=== PATIENT | female | born 1935 | race Caucasian/White ===

== ENCOUNTER 2016-09-03 11:05 | Emergency (ER) | payer OTHER, BC ==
[~2016-09-03] VITALS: Ht 162.6 cm; Wt 78.5 kg
[~2016-09-03 11:05] MED LIST: ARTANE2 MG PO; Amoxil PO; Aspirin E.C. PO; BACTRIM,SEPT1 TABLET PO; Bactrim,Septra DS 80 PO; CARBIDOPA-LEVO1 EA10 PO; CEFDINIR300 MG PO; CIPRO500 MG PO; Cranberry PO; DEPAKOTE ER250 MG PO; DEPAKOTE ER500 MG PO; DEPAKOTE250 MG PO; DEPAKOTE500 MG PO; FERROUS SULFAT325 MG PO; FLAGYL500 MG PO; GLYCOLAX225 GM PO; KEFLEX500 MG PO; LEVOFLOXACIN500 MG PO; LEVOTHYROXINE100 MCG PO; LIPITOR10 MG PO; LIPITOR40 MG PO; Levaquin PO; Levothroid,Synthroid PO; MIRALAX17 GM PO; MIRTAZAPINE7.5 MG PO; PLAVIX75 MG PO; PROBIOTIC250 MG PO; Plavix PO; SENSIPAR30 MG PO; SINEMET 25-1001 EACH PO; SYNTHROID75 MCG PO; TYLENOL REGULA325 MG PO; TYLENOL WITH C1 EACH PO; VALTREX1000 MG PO; VITAMIN D1000 INTUN PO; VITAMIN D31000 UNI2 PO; ZITHROMAX250 MG PO; ZOLOFT25 MG PO
[2016-09-03 12:31] LABS: HEMATOCRIT 40.4 % (36.0-46.0); MCH 30.5 PG (29.0-34.0); MCHC 32.9 G/DL (30.0-36.0); MCV 92.7 FL (83-99); PLATELET COUNT 194 K/uL (156-360); RBC DIS.WIDTH-SD 44.5 % (39-53); RED BLOOD COUNT 4.36 M/uL (3.80-5.20); WHITE BLOOD COUNT 23.6 K/uL (4.1-10.2)
[2016-09-03 12:44] LABS: CHLORIDE 105 mEq/L (99-109); SODIUM 139 mEq/L (136-147)
[2016-09-03 12:45] LABS: GLUCOSE 94 mg/dL (70-99)
[2016-09-03 12:47] LABS: ANION GAP 8 MEQ/L (2-14)
[2016-09-03 12:49] LABS: GFR ESTIMATE (CALCULATED) 56 mL/min/
[2016-09-03 12:50] LABS: UREA NITROGEN (BUN) 18 mg/dL (9-23)
[2016-09-03 12:52] LABS: ADD MIUA? YES; BILIRUBIN NEGATIVE; BLOOD NEGATIVE; COLOR YELLOW ((YELLOW)); GLUCOSE (STRIP) NEGATIVE; KETONES NEGATIVE; LEUKOCYTES NEGATIVE; NITRITE NEGATIVE; PROTEIN (STRIP) NEGATIVE; UROBILINOGEN 0.2 MG/DL (0.2-1.0)
[2016-09-03 13:03] LABS: BACTERIA RARE /HPF; EPITHELIAL CELLS RARE /HPF; MUCUS TRACE /LPF; RED BLOOD CELLS 0-5 /HPF (0-5); UCUL ADDED? NO; WHITE BLOOD CELLS 0-5 /HPF (0-5)
[2016-09-03 15:16] VITALS: BP 116/61
== END 2016-09-03 15:17 | disposition home or self-care (01) ==
LOC: EME 11:05
PROVIDERS: Emergency Medicine
DX: S70.02XA Contusion of left hip, initial encounter (principal); W18.11XA Fall from or off toilet without subsequent striking against object, initial encounter; Y92.192 Bathroom in other specified residential institution as the place of occurrence of the external cause; E78.5 Hyperlipidemia, unspecified; G40.909 Epilepsy, unspecified, not intractable, without status epilepticus
CPT/HCPCS: 73502; 80048; 81003; 85027; 99281; 99284

== ENCOUNTER 2017-02-17 18:14 | Emergency (ER) | payer OTHER, BC ==
[~2017-02-17] VITALS: Ht 157.5 cm; Wt 40.8 kg
[2017-02-17 22:14] VITALS: BP 125/48
== END 2017-02-17 23:00 | disposition home or self-care (01) ==
LOC: EME 18:14
PROC: 0HQ0XZZ Repair Scalp Skin, External Approach (ICD-10-PCS; principal; 2017-02-17)
DX: S01.01XA Laceration without foreign body of scalp, initial encounter (principal); S06.0X0A Concussion without loss of consciousness, initial encounter; W18.09XA Striking against other object with subsequent fall, initial encounter; F03.90 Unspecified dementia, unspecified severity, without behavioral disturbance, psychotic disturbance, mood disturbance, and anxiety; G20 Parkinson's disease; E78.5 Hyperlipidemia, unspecified; K21.9 Gastro-esophageal reflux disease without esophagitis; R56.9 Unspecified convulsions; E03.9 Hypothyroidism, unspecified; Z85.6 Personal history of leukemia; Z87.440 Personal history of urinary (tract) infections
CPT/HCPCS: 70450; 99281; 99284